=== PATIENT | male | born 1955 | race Caucasian/White ===

== ENCOUNTER 2023-03-18 21:31 | Emergency (ER) | payer OTHER ==
[~2023-03-18] VITALS: Ht 170.2 cm; Wt 70.3 kg
--- NOTE | 2023-03-18 21:44 | NUR ---
CALLED OUT NAME IN THE WAITING ROOM SEVERAL TIMES - NO ANSWER.
[2023-03-18 21:51] VITALS: BP_SYST 136
--- NOTE | 2023-03-18 21:51 | NUR ---
Triaged and placed patient back to the waiting room. No acute respiratory distress at this time. VSS. Informed patient to notify ED staff for any changes in condition or worsening of symptoms while waiting to be seen by a provider. Patient verbalized understanding.
--- NOTE | 2023-03-18 23:25 | NUR ---
Patient to ER bed 06 to gown for evaluation. Side rails up. Report given to REGLA LICEA
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
--- NOTE | 2023-03-18 23:40 | NUR ---
ER at bedside examining patient.
[2023-03-18] MEDS ORDERED: MORPHINE 4 MG INJ. 4 MG/ML VIAL IM ONE (23:45)
[2023-03-18] MEDS ORDERED: TRAM50TA2 PO (23:48)
--- NOTE | 2023-03-19 00:07 | NUR ---
Patient given written and verbal discharge instructions and verbalizes understanding. ER MD discussed with patient the results and treatment provided. Patient in stable condition. ID arm band removed. Rx of TRAMADOL given. Patient educated on pain management and to follow up with PMD. Pain Scale 0/10. Opportunity for questions provided and answered. Medication side effect fact sheet provided.
== END 2023-03-19 00:06 | disposition home or self-care (01) ==
LOC: SED 21:31
DX: S42.295A Other nondisplaced fracture of upper end of left humerus, initial encounter for closed fracture (principal); Z79.899 Other long term (current) drug therapy; V28.01XA Electric (assisted) bicycle driver injured in noncollision transport accident in nontraffic accident, initial encounter; Y93.89 Activity, other specified; Y92.89 Other specified places as the place of occurrence of the external cause; Y99.8 Other external cause status
CPT/HCPCS: 99283; 29105; 73030; 96372; J2270